=== PATIENT | female | born 1945 | race Two or more races ===

== ENCOUNTER 2023-04-20 21:15 | Emergency (ER) | payer OTHER ==
[~2023-04-20] VITALS: Ht 165.1 cm; Wt 71.7 kg
[~2023-04-20 21:15] MED LIST: FOSAMAX70 MG; HYDROCHLOROTH12.5 M1; LIPITOR20 MG
== END 2023-04-21 02:10 | disposition home or self-care (01) ==
LOC: ER 21:15
DX: U07.1 COVID-19 (principal); I10 Essential (primary) hypertension; Z88.2 Allergy status to sulfonamides; Z88.8 Allergy status to other drugs, medicaments and biological substances; Z88.6 Allergy status to analgesic agent; Z91.040 Latex allergy status